=== PATIENT | female | born 1990 | race Caucasian/White ===

== ENCOUNTER 2018-01-01 08:19 | Emergency (ER) | payer OTHER ==
[~2018-01-01] VITALS: Ht 167.6 cm; Wt 93.0 kg
[~2018-01-01 08:19] MED LIST: CARISOPRODOL 3350 MG PO; FLEXERIL; FLEXERIL PO; NOHOMEMEDICATIONS; NORCO 5-325 TA1 EACH PO; TRAMADOL 50 MG50 MG; TRIAMCINOLONE TOP; ULTRAM 50MG TAB50 MG PO
[2018-01-01] MEDS ORDERED: NORCO 5-325 TA1 EACH PO (09:35)
[2018-01-01 10:13] VITALS: BP 141/100
== END 2018-01-01 10:14 | disposition home or self-care (01) ==
LOC: M.ERS 08:19
DX: S92.355A Nondisplaced fracture of fifth metatarsal bone, left foot, initial encounter for closed fracture (principal); Y93.K1 Activity, walking an animal; Y93.89 Activity, other specified; Y92.89 Other specified places as the place of occurrence of the external cause; Y99.8 Other external cause status

== ENCOUNTER 2018-01-03 16:24 | Emergency (ER) | payer OTHER ==
[~2018-01-03] VITALS: Ht 167.6 cm; Wt 93.0 kg
[2018-01-03 16:37] VITALS: BP 171/82
[2018-01-03] MEDS ORDERED: HYDROCODONE-AP1 EAC6 PO (16:46)
== END 2018-01-03 17:04 | disposition home or self-care (01) ==
LOC: M.ERS 16:24
DX: M79.672 Pain in left foot (principal)